=== PATIENT | female | born 1970 | race Caucasian/White ===

== ENCOUNTER 2020-02-25 16:34 | Emergency (ER) | payer MEDICAID, SELFPAY ==
[2020-02-25 16:38] VITALS: BP 139/86; PULSE 95; RESP 16; TEMP 36.6; O2SAT 97
--- NOTE | 2020-02-25 16:57 | W.ED.GENAD ---
Discharge Plan Disposition Patient Disposition: HOME Condition: Improving Discharge Details Chief Complaint: Laceration Clinical Impression: Laceration of elbow, right ED Provider: Ramos Delarosa Home Meds and New Rx's Prescriptions: Continued acetaminophen [Acetaminophen Extra Strength] 500 mg Tablet 500 mg PO QID PRNRF: 0 Discharge Instructions Instructions: Laceration (ED) Additional Instructions: He had 3 absorbable sutures placed in the laceration. These will slowly absorb over approximately 1 week's time. Leave current dressing in place for 24 to 48 hours. Then may remove, gently wash with soap and water, pat dry and replace dressing. The Steri-Strips will curl and may be removed over the next 5 to 7 days time. Return to develop a fever, foul-smelling discharge from the wound, or any other acute concerns. Medical Decision Making Healthy 49-year-old female states she was walking down her stairs when she lacerated the right elbow on a protruding nail edge. She applied pressure at the scene and presented to the ER. Her vital signs are unremarkable. Her tetanus is out of date and she was given a Boostrix. The wound was anesthetized, irrigated, cleansed, examined in a bloodless field without evidence of foreign body. 3 interrupted 5-0 Vicryl sutures were placed with good wound apposition. Steri-Strips were placed over this and a Band-Aid was placed as a dressing by myself at the bedside. She understands homecare and expected course of resolution. She will return for any acute concerns. HPI General Mode of arrival: ambulatory. Date/Time Provider Initiated Documentation: 02/25/20 16:36. Limitations to Documentation: no limitations. Information obtained by: patient. History of Present Illness 49 year old F presents to the emergency department with the chief complaint of Right elbow laceration at home, described as mild, Quality is described as dull, and is localized to the right and upper extremity. Patient reports no radiation. Patient started experiencing this minute(s) and it has been constant. No relieving factors improve symptom(s), No exacerbating factors reported . Patient did receive the following treatments prior to arrival, none Related Data Home Medications Medication Instructions Recorded Confirmed acetaminophen [Acetaminophen Extra 500 mg PO QID PRN 02/25/20 02/25/20 Strength] General Stated Complaint: Laceration OCTAVIA: 4 Review of Systems Narrative: No other injury. Tetanus out of date. [facility] Social History Smoking/Tobacco Use Status: Former Tobacco Use Alcohol Intake: never Substance use type: does not use Do you feel safe at home: Yes Do you feel safe in your relationship?: Yes Exam Narrative Exam Narrative: GEN: awake, alert, oriented 3. Pleasant, well groomed, interactive. HEAD: Normocephalic, atraumatic EXT: Full ROM, no edema, no rash, right elbow with 1.5 cm linear laceration that penetrates just through depth of the dermis. Normal distal function of the upper extremity Neuro: Grossly normal neurologic exam, conversant, interactive. Psych: Speech fluent, thoughts congruent, affect normal Course Vital Signs Vital signs: Vital Signs Temperature 36.6 C 02/25/20 16:38 Pulse 95 H 02/25/20 16:38 Respiratory Rate 16 02/25/20 16:38 Blood Pressure 139/86 02/25/20 16:38 Pulse Oximetry 97 02/25/20 16:38 Temperature 36.6 C 02/25/20 16:38 Temperature Source Skin 02/25/20 16:38 Pulse 95 H 02/25/20 16:38 Respiratory Rate 16 02/25/20 16:38 Respiratory Effort Non-Labored 02/25/20 16:38 Blood Pressure 139/86 02/25/20 16:38 Blood Pressure Position Sitting 02/25/20 16:38 Pulse Oximetry 97 02/25/20 16:38 Oxygen Delivery Method Room Air 02/25/20 16:38 Oxygen Flow Rate 0 02/25/20 16:38 Pain Level 2 02/25/20 16:38 Procedures Laceration Laceration 1: Site: upper extremity Side (If applicable): right Size (cm): 1.5 Description: linear Depth: simple, single layer Local Anesthetic: Lidocaine 1% Amount of anesthesia used (mL): 1 Pre-repair: wound explored Skin layer closed with: vicryl Size (cm): 5-0
[2020-02-25 17:14] VITALS: BP 139/86; PULSE 95; RESP 16; TEMP 36.6; O2SAT 97
== END 2020-02-25 17:14 | disposition home or self-care (01) ==
PROVIDERS: Emergency Provider Emergency Medicine
DX: S51.011A Laceration without foreign body of right elbow, initial encounter (principal); W26.8XXA Contact with other sharp object(s), not elsewhere classified, initial encounter
CPT/HCPCS: 12001; 90471

== ENCOUNTER 2023-05-07 13:14 | Emergency (ER) | payer MEDICAID, SELFPAY ==
[2023-05-07 13:17] VITALS: BP 148/85; PULSE 80; RESP 20; TEMP 37; O2SAT 99
[2023-05-07] MEDS: Fluorescein STRIPS 100/BOX 1 MG (13:32)
--- NOTE | 2023-05-07 13:34 | ED.GENADUL_ITS ---
Discharge Plan Disposition Patient Disposition: Home Discharge Details Clinical Impression: Conjunctivitis of left eye, Abrasion, corneal Primary Care Provider: Julia Maravilla ED Provider: Akshat Melton Home Meds and New Rx's Prescriptions: No Action acetaminophen [Acetaminophen Extra Strength] 500 mg Tablet 500 mg PO QID PRN Discharge Instructions Instructions: Corneal Abrasion (ED), Conjunctivitis (ED) Additional Instructions: At this time you have a small ulcer and infection. Please apply 1 drop of the antibiotic ointment to your affected every 6 hours. We have placed a referral with the eye doctor, Dr. Taylor. Please call them this afternoon to set up a follow-up appointment in the next 48 hours. We have spoken with your [employer] support, and they will be following up with you to further discuss further medication treatment in the future. If you notice any worsening of your symptoms, or any new symptoms such as vomiting, diarrhea, fever, chills, shortness of breath, chest pain, numbness, weakness, or fainting , please return immediately to the emergency department for reevaluation. Please follow up with your primary care provider as soon as possible for reassessment and reevaluation. As always, it was a pleasure participating in your medical care today. Stand Alone Forms: Work Release Referrals: [facility] [Outside] Medical Decision Making 53-year-old female with a past medical history of eczema for which she is recently started on Dupixent monoclonal antibody therapy presents today for left eye irritation. Patient states that she received the injection at [facility] from dermatology on Saturday, and shortly thereafter developed irritation in the left eye. This morning she woke up and there was goopy discharge, redness and pain. Pain is made worse with bright lights, relieved by dark room. She denies any contact lens wearing. She denies any grinding, welding, or any history of foreign body. She denies fever or chills. No significant change in vision otherwise. She denies headache. No personal history of glaucoma. Physical exam demonstrates conjunctival injection, small punctate area of fluorescein uptake just inferior and medial to the pupil. Pressures are palpably equivalent. No evidence of pre or postseptal cellulitis. Dr. Cano is the [employer] support who prescribed the medication. Did contact dermatology and spoke with Zoltan Gonzalez on Dr. Brady behalf. He recommends further discussion for the patient on the repeat visits for potential continuation or discontinuation of future injections. Additionally they defer to ophthalmology for further maintenance/management. Did contact [facility] eye care and spoke with shot examiner Dr. Flores. She recommends close follow-up in the next 48 hours and starting on antibacterial/steroid treatment. We will start the patient on TobraDex, and have her follow-up closely. Patient otherwise stable. No evidence of acute angle-closure glaucoma. No other complaints at this time. I have extensively reviewed the treatment plan and discharge instructions with the patient. I have addressed all patient concerns at this time. The patient was made aware of what symptoms to monitor for that would warrant a return to the emergency department. Discussed the plan with the patient, they demonstrate verbal understanding and agreement with our assessment and plan at this time. The documentation in this chart was dictated using [employer] dictation software. Please excuse any dictation errors. I have extensively reviewed the treatment plan and discharge instructions with the patient. I have addressed all patient concerns at this time. The patient was made aware of what symptoms to monitor for that would warrant a return to the emergency department. Discussed the plan with the patient, they demonstrate verbal understanding and agreement with our assessment and plan at this time. The documentation in this chart was dictated using [employer] dictation software. Please excuse any dictation errors. HPI General Date/Time Provider Initiated Documentation: 05/07/23 13:15 . HPI Narrative: 53-year-old female with a past medical history of eczema for which she is recently started on Dupixent monoclonal antibody therapy presents today for left eye irritation. Patient states that she received the injection at [facility] from dermatology on Saturday, and shortly thereafter developed irritation in the left eye. This morning she woke up and there was goopy discharge, redness and pain. Pain is made worse with bright lights, relieved by dark room. She denies any contact lens wearing. She denies any grinding, welding, or any history of foreign body. She denies fever or chills. No significant change in vision otherwise. She denies headache. No personal h istory of glaucoma. Related Data Home Medications Medication Instructions Recorded Confirmed acetaminophen 500 mg tablet 500 mg PO QID PRN 02/25/20 05/07/23 (Acetaminophen Extra Strength) Allergies Allergy/AdvReac Type Severity Reaction Status Date / Time animal dander Allergy Intermediate Unverified 05/07/23 13:23 sulfamethoxazole Allergy Unverified 05/07/23 13:23 [From Bactrim] trimethoprim [From Bactrim] Allergy Unverified 05/07/23 13:23 bacitracin AdvReac Intermediate Swelling/Ed Unverified 05/07/23 13:23 bebeto General Stated Complaint: Allergic OCTAVIA: 4 Review of Systems All systems reviewed & are unremarkable except as noted in HPI and below PFSH All Active Problems (Updated 05/07/23 @ 13:51 by Akshat Melton DO) Conjunctivitis of left eye (Acute) Abrasion, corneal (Acute) Social History Smoking/Tobacco Use Status: Former Tobacco Use Smoking risk assessment performed?: Yes Alcohol Intake: never Substance use type: does not use Do you feel safe at home: Yes Do you feel safe in your relationship?: Yes Exam Narrative Exam Narrative: 1.Const: Well-nourished, Well-developed, appearing stated age 2.Eyes: PERRL, notable left-sided conjunctival injection. EOMI, PERRL, Peripheral vision intact. No nystagmus. Fundoscopic exam shows normal optic discs and normal vasculature. No clinical signs of septal/orbital cellulitis, no redness around the eye, no proptosis. No hyphema, no signs of trauma around the eye, no periorbital emphysema. No sluggishness of the pupil. No ophthalmoplegia. No afferent pupillary defect. Fluorescein exam is positive for punctate area of uptake just to the left medial inferior component of the eye near the pupil, negative Vikram sign. Visual acuity as documented in chart. No palpable tenderness or firmness comparative to the right eye to suggest glaucoma 3.ENT: Atraumatic external nose and ears. Moist MM. Neck: Symmetric, trachea midline, No thyromegaly. 4.CVS: +S1/S2, No murmurs or gallops. Peripheral pulses 2+ and equal in all extremities. Brisk capillary refill in all extremities. 5.RESP: Unlabored respiratory effort. Clear to auscultation bilaterally. No wheezes rales or rhonchi 6.GI: Soft, Nontender/Nondistended, No hepatosplenomegaly. No guarding or rebound. 7.MSK: Normocephalic/Atraumatic, Extremities w/o deformity or ttp No cyanosis or clubbing, Normal movement of all extremities 8.Skin: Warm, Dry. No rashes or lesions. 9.Neuro: school crossing guard II-XII grossly intact. Sensation grossly intact, no focal neur ologic deficits. 10.Psych: (AAO) x3. Appropriate mood and affect Course Vital Signs Vital signs: Vital Signs Temperature 37.0 C 05/07/23 13:17 Pulse 80 05/07/23 13:17 Respiratory Rate 20 05/07/23 13:17 Blood Pressure 148/85 H 05/07/23 13:17 Pulse Oximetry 99 05/07/23 13:17 Temperature 37.0 C 05/07/23 13:17 Pulse 80 05/07/23 13:17 Respiratory Rate 20 05/07/23 13:17 Respiratory Effort Normal 05/07/23 13:21 Respiratory Pattern Normal 05/07/23 13:21 Blood Pressure 148/85 H 05/07/23 13:17 Blood Pressure Position Sitting 05/07/23 13:17 Pulse Oximetry 99 05/07/23 13:17 Oxygen Delivery Method Room Air 05/07/23 13:17 Oxygen Flow Rate 0 05/07/23 13:17
--- NOTE | 2023-05-07 13:40 | NUR.NOTE ---
Referral faxed to [facility] for conjunctivitis w/possible ulcer to be seen in 24 to [address] Marley at time of visit. Nursing Note:
== END 2023-05-07 14:11 | disposition home or self-care (01) ==
PROVIDERS: Emergency Provider Student in an Organized Health Care Education/Training Program
DX: H10.9 Unspecified conjunctivitis (principal); S05.01XA Injury of conjunctiva and corneal abrasion without foreign body, right eye, initial encounter; X58.XXXA Exposure to other specified factors, initial encounter
CPT/HCPCS: 99282

== ENCOUNTER 2023-10-30 11:31 | Outpatient (REF) | payer MEDICAID, SELFPAY ==
[2023-10-30 15:10] LABS: C & S Indicated? C&S Done As Ordered; RBC >50 HPF (0-2)
== END 2023-10-30 11:32 | disposition home or self-care (01) ==
LOC: NCHCN 11:31
PROVIDERS: Visit Provider Physician Assistant Medical
DX: R30.0 Dysuria (principal); R82.998 Other abnormal findings in urine
CPT/HCPCS: 87077; 81015; 87086; 87186

== ENCOUNTER 2023-11-03 09:59 | Emergency (ER) | payer MEDICAID, SELFPAY ==
[2023-11-03 10:14] VITALS: BP 160/92; PULSE 96; RESP 16; TEMP 36.5; O2SAT 95
[2023-11-03 10:21] VITALS: BP 160/92; PULSE 96; RESP 16; TEMP 36.5; O2SAT 98
[2023-11-03 10:34] LABS: Bilirubin Negative (Negative); Blood Moderate (Negative); Clarity Cloudy (Clear); Glucose Negative (Negative); Ketones Trace mg/dL (Negative); Leukocyte Esterase Moderate (Negative); Nitrite Negative (Negative); Urobilinogen 0.2 mg/dL (Up to 0.2)
[2023-11-03 10:47] LABS: Bacteria Moderate HPF (Negative); C & S Indicated? Yes; Casts Negative LPF (Negative); Crystals Negative HPF (Negative); Epithelial Cells Few HPF (Negative); Mucus Negative (Negative); WBC >50 HPF (0-5)
--- NOTE | 2023-11-03 10:47 | W.ED.GENAD ---
Discharge Plan Disposition Patient Disposition: Home Condition: Stable Discharge Details Clinical Impression: UTI (urinary tract infection) Primary Care Provider: Unknown,Unknown ED Provider: Jennifer Delgado Home Meds and New Rx's Prescriptions: New ciprofloxacin HCl [Cipro] 250 mg tablet 250 mg PO BID Qty: 10 0RF Continued acetaminophen [Acetaminophen Extra Strength] 500 mg Tablet 500 mg PO QID PRN metformin 500 mg tablet extended release 24 hr 500 mg PO BID Patient Comments: TAKE 1 TABLET BY MOUTH THREE TIMES DAILY WITH MEALS FOR DIABETES Rx Instructions: weaning to daily Ozempic 0.25 mg or 0.5 mg (2 mg/3 mL) pen injector 0.25 mg SUBCUT ONCE Patient Comments: INJECT 0.25MG SUBCUTANEOUSLY ONCE WEEKLY FOR 4 WEEKS, THEN INCREASE TO 0.5MG ONCE WEEKLY Rx Instructions: about to start week 4 escitalopram oxalate 10 mg tablet 10 mg PO DAILY Patient Comments: Take 1 tablet by mouth once a day for PPPD omeprazole 20 mg capsule,delayed release(DR/EC) 20 mg PO DAILY Patient Comments: TAKE 1 CAPSULE BY MOUTH ONCE DAILY No Action nitrofurantoin monohyd/m-cryst [Macrobid] 100 mg capsule Patient Comments: Take 1 capsule by mouth twice a day for UTI cephalexin 500 mg tablet 1,000 mg PO PRN Patient Comments: TAKE 1 TABLET BY MOUTH FOUR TIMES DAILY (APPROXIMATELY EVERY 4 HOURS WHILE AWAKE) FOR 5 DAYS Discharge Instructions Instructions: Urinary Tract Infection in Women (ED) Additional Instructions: Take the new antibiotic ciprofloxacin twice daily for the next 5 days Yogurt daily while on antibiotic Follow-up with your doctor for recheck next week and return earlier should you have new or worsening complaints Based on your urine culture this is the appropriate antibiotic Have your blood pressure rechecked by primary care Discharge Data Discharge Date/Time-TO BE ENTERED AT DEPARTURE: 11/03/23 10:49 HPI General Date/Time Provider Initiated Documentation: 11/03/23 10:05. HPI Narrative: Is a 53-year-old female presents with report of dysuria and frequency. States she saw PCP on Saturday and had a urine culture performed but urinalysis is negative so antibiotics at home. Denies any flank pain or fever. States she has had some hematuria. Related Data Home Medications Medication Instructions Recorded Confirmed acetaminophen 500 mg tablet 500 mg PO QID PRN 02/25/20 05/07/23 (Acetaminophen Extra Strength) cephalexin 500 mg tablet 1,000 mg PO PRN 11/03/23 11/03/23 ciprofloxacin HCl 250 mg tablet 250 mg PO BID #10 tabs 11/03/23 (Cipro) escitalopram oxalate 10 mg tablet 10 mg PO DAILY 11/03/23 11/03/23 metformin 500 mg tablet,extended 500 mg PO BID 11/03/23 11/03/23 release 24 hr nitrofurantoin 11/03/23 monohydrate/macrocrystals 100 mg capsule (Macrobid) omeprazole 20 mg capsule,delayed 20 mg PO DAILY 11/03/23 11/03/23 release semaglutide 0.25 mg or 0.5 mg (2 0.25 mg subcut ONCE 11/03/23 11/03/23 mg/3 mL) subcutaneous pen injector ([employer]) Previous Rx's Medication Instructions Recorded ciprofloxacin HCl 250 mg tablet 250 mg PO BID #10 tabs 11/03/23 (Cipro) Allergies Allergy/AdvReac Type Severity Reaction Status Date / Time animal dander Allergy Intermediate Itching Unverified 11/03/23 10:09 sulfamethoxazole Allergy Nausea Unverified 11/03/23 10:09 [From Bactrim] trimethoprim [From Bactrim] Allergy Nausea Unverified 11/03/23 10:09 bacitracin AdvReac Intermediate Swelling/Ed Unverified 11/03/23 10:09 bebeto General Stated Complaint: Urinary OCTAVIA: 3 Course Vital Signs Vital signs: Vital Signs Temperature 36.5 C 11/03/23 10:14 Pulse 96 H 11/03/23 10:14 Respiratory Rate 16 11/03/23 10:14 Blood Pressure 160/92 H 11/03/23 10:14 Pulse Oximetry 95 11/03/23 10:14 Temperature 36.5 C 11/03/23 10:21 Temperature Source Temporal Artery Scan 11/03/23 10:21 Pulse 96 H 11/03/23 10:21 Respiratory Rate 16 11/03/23 10:21 Respiratory Effort Normal, Non-Labored 11/03/23 10:17 Blood Pressure 160/92 H 11/03/23 10:21 Blood Pressure Position Sitting 11/03/23 10:14 Pulse Oximetry 98 11/03/23 10:21 Oxygen Delivery Method Room Air 11/03/23 10:21 Oxygen Flow Rate 0 11/03/23 10:14 Pain Level 7 11/03/23 10:21 Lab/Test Results Lab/Test Results: Laboratory Tests Range/Units 11/03/23 10:28 Urine Color (Yellow) Yellow Urine Clarity (Clear) Cloudy Urine pH (5-8) 6.0 Ur Specific White[place] (1.005-1.025) 1.020 Urine Protein (Neg-Trace) mg/dL Negative Urine Ketones (Negative) mg/dL Trace H Urine Blood (Negative) Moderate H Urine Nitrite (Negative) Negative Urine Bilirubin (Negative) Negative Urine Urobilinogen (Up to 0.2) mg/dL 0.2 Ur Leukocyte Esterase (Negative) Moderate H Urine Glucose (Negative) mg/dL Negative Medical Decision Making This 53-year-old female presents with urinary symptoms, afebrile and nontoxic, no flank pain or abdominal tenderness per patient Urinalysis is positive for Pseudomonas, reviewed sensitivities and patient was started on Cipro empirically, removed from Macrobid and nitrofurantoin Afebrile and nontoxic in appearance Urinalysis persistently positive culture reviewed, approximately 5 minutes of medical history reviewed Return precautions reviewed and patient expressed understanding, recheck in 48 hours recommended Quality:SDOH Health Related Social Needs: No Data to Display PFSH All Active Problems (Updated 11/03/23 @ 10:38 by CRISTIAN Lancaster) UTI (urinary tract infection) (Acute) Social History Smoking/Tobacco Use Status: Former Tobacco Use Smoking risk assessment performed?: Yes Alcohol Intake: never Drug use: Never Substance use type: does not use Housing: house Do you feel safe at home: Yes Do you feel safe in your relationship?: Yes
== END 2023-11-03 10:49 | disposition home or self-care (01) ==
LOC: ER 10:58
PROVIDERS: Emergency Provider Physician Assistant
DX: N39.0 Urinary tract infection, site not specified (principal); B96.5 Pseudomonas (aeruginosa) (mallei) (pseudomallei) as the cause of diseases classified elsewhere; Z79.84 Long term (current) use of oral hypoglycemic drugs; Z79.85 Long-term (current) use of injectable non-insulin antidiabetic drugs; Z87.891 Personal history of nicotine dependence
CPT/HCPCS: 87077; 99283; 81003; 81015; 87086; 87186

== ENCOUNTER 2025-03-26 15:29 | Outpatient (REF) | payer MEDICAID, SELFPAY ==
[2025-03-26 15:47] LABS: Abs Immature Grans 0.02 10^3/uL (0.0-0.06); HCT 39.0 % (36.0-46.0); HGB 13.0 g/dL (11.2-15.7); Immature Grans % 0.3 %; MCH 28.1 pg (27.0-33.0); MCHC 33.3 % (32.0-36.0); MCV 84 fL (80-95); MPV 9.7 fL (8.0-11.0); Platelet Count 325 10^3/uL (130-400); RBC 4.62 10^6/uL (3.93-5.22); RDW 12.5 % (11.7-14.6); RDW-SD 37.7 fL; WBC 6.44 10^3/uL (4.4-10.8)
[2025-03-26 16:13] LABS: Hemoglobin A1C 8.8 % (<5.7)
[2025-03-26 16:22] LABS: ALT 47 U/L (14-59); AST 31 U/L (15-37); Albumin 3.7 g/dL (3.4-5.0); Alkaline Phosphatase 81 U/L (46-116); Anion Gap 10.0 mmol/L (3-11); BUN 14 mg/dL (7-18); Bilirubin, Total 0.4 mg/dL (0.2-1.0); CO2 28.0 mmol/L (21.0-32.0); Calcium 8.9 mg/dL (8.5-10.1); Calculated LDL 147 mg/dL (<100); Chloride 101 mmol/L (98-107); Cholesterol 221 mg/dL (<200); Estimated GFR 87.50 (mL/min/1.73m2); Glucose 200 mg/dL (74-106); HDL Cholesterol 42 mg/dL (>or=50); Potassium 4.3 mmol/L (3.5-5.1); Sodium 139 mmol/L (136-145); Total Protein 7.3 g/dL (6.4-8.2); Triglyceride 160 mg/dL (<150); Vitamin D 25 Total 41 ng/mL (30-100)
== END 2025-03-26 15:30 | disposition home or self-care (01) ==
LOC: NCHCN 15:29
PROVIDERS: PCP Nurse Practitioner Family; Visit Provider Nurse Practitioner Family
DX: E11.9 Type 2 diabetes mellitus without complications (principal); E55.9 Vitamin D deficiency, unspecified; Z13.220 Encounter for screening for lipoid disorders; Z13.6 Encounter for screening for cardiovascular disorders
CPT/HCPCS: 80053; 80061; 82306; 83036; 85025

== ENCOUNTER 2025-04-08 03:01 | Outpatient (CLI) | payer MEDICAID, SELFPAY ==
--- NOTE | 2025-04-08 | DI.MAMMO_ITS ---
Exam(s) MAMMO SCREENING EXAM: MAMMO SCREENING CLINICAL HISTORY: SCREENING MAMMO Z12.31 TECHNIQUE: Mammograms were interpreted according to the usual protocol including computer analysis with CAD system, tomosynthesis and C-view imaging. COMPARISON: 2011 and 2012 FINDINGS: The breasts are composed of mainly fatty density , Breast Density category A. No suspicious masses or suspicious microcalcifications are seen. No skin thickening or abnormal axillary lymph nodes are seen. There has been no significant change from prior exams. IMPRESSION: BI-RADS Category 1, Negative mammogram Yearly screening mammography is recommended. Breast Density- Category A - The breast are almost entirely fatty. Breast density Category C or D implies that the patient has dense breast tissue. Dense breast tissue can make it harder to find cancer on a mammogram. Dense breast tissue is also associated with an increased risk of breast cancer. This information about the result of the mammogram report was provided to the patient to raise their awareness. Use this report when you speak with the patient about their risks for breast cancer, which includes their family history. At that time, you may recommend additional screening tests (Ultrasound or MRI) as these tests may add significant information. A negative radiographic report should not delay biopsy if a dominant or clinically suspicious mass is present. Up to ten percent of cancers are not identified on mammography. A negative report may reinforce clinical impression. Adenosis and dense breasts may obscure an underlying neoplasm. False positive reports average 6 to 10%. Patient will receive a letter notifying them of these results.
== END 2025-04-08 03:21 ==
PROVIDERS: PCP Nurse Practitioner Family; Visit Provider Nurse Practitioner Family
DX: Z12.31 Encounter for screening mammogram for malignant neoplasm of breast (principal)
CPT/HCPCS: 77063; 77067

== ENCOUNTER 2025-06-28 21:25 | Outpatient (REF) | payer MEDICAID, SELFPAY | END 2025-06-28 21:26 | disposition home or self-care (01) | LOC: NCHCN 21:25 | PROVIDERS: PCP Nurse Practitioner Family; Visit Provider Nurse Practitioner Family | DX: E11.9 Type 2 diabetes mellitus without complications (principal) | CPT/HCPCS: 82043; 82570 ==